=== PATIENT | female | born 1980 | race Two or more races ===

== ENCOUNTER → 2019-05-05 | Outpatient (CLI) | payer OTHER | END | disposition home or self-care (01) | LOC: RX STUDY 10:15 | DX: N93.0 Postcoital and contact bleeding (principal) ==

== ENCOUNTER 2020-11-19 07:45 | Outpatient (CLI) | payer OTHER | END 2020-11-19 15:00 | disposition home or self-care (01) | LOC: LAB 07:45 | PROVIDERS: ATTEND Internal Medicine Rheumatology | DX: M17.11 Unilateral primary osteoarthritis, right knee (principal); M32.10 Systemic lupus erythematosus, organ or system involvement unspecified; E78.49 Other hyperlipidemia; E06.5 Other chronic thyroiditis; M06.00 Rheumatoid arthritis without rheumatoid factor, unspecified site ==

== ENCOUNTER 2020-11-19 08:51 | Outpatient (CLI) | payer OTHER | END 2020-11-19 09:18 | disposition home or self-care (01) | LOC: MRI 08:51 | PROVIDERS: ATTEND Physical Medicine & Rehabilitation | DX: M25.511 Pain in right shoulder (principal) | CPT/HCPCS: 73221 ==

== ENCOUNTER 2021-09-18 09:20 | Outpatient (CLI) | payer OTHER | END 2021-09-18 09:28 | disposition home or self-care (01) | LOC: LAB 09:20 | PROVIDERS: ATTEND Obstetrics & Gynecology | DX: E07.89 Other specified disorders of thyroid (principal); Z11.3 Encounter for screening for infections with a predominantly sexual mode of transmission; Z11.4 Encounter for screening for human immunodeficiency virus [HIV]; A64 Unspecified sexually transmitted disease; N39.0 Urinary tract infection, site not specified; E55.9 Vitamin D deficiency, unspecified; R42 Dizziness and giddiness; D50.0 Iron deficiency anemia secondary to blood loss (chronic) ==

== ENCOUNTER 2021-09-18 11:45 | Outpatient (CLI) | payer OTHER | END 2021-09-18 11:48 | disposition home or self-care (01) | LOC: MAMO-SONO 11:45 | PROVIDERS: ATTEND Obstetrics & Gynecology | DX: N64.59 Other signs and symptoms in breast (principal); N64.4 Mastodynia; Z12.31 Encounter for screening mammogram for malignant neoplasm of breast ==

== ENCOUNTER → 2021-10-10 08:49 | Outpatient (CLI) | payer OTHER | END | disposition home or self-care (01) | LOC: LAB 08:49 | PROVIDERS: ATTEND Obstetrics & Gynecology | DX: N97.9 Female infertility, unspecified (principal); N97.2 Female infertility of uterine origin ==

== ENCOUNTER 2021-10-17 09:39 | Outpatient (CLI) | payer OTHER | END 2021-10-17 09:44 | disposition home or self-care (01) | LOC: RX STUDY 09:39 | PROVIDERS: ATTEND Obstetrics & Gynecology | DX: Q51.818 Other congenital malformations of uterus (principal) ==